=== PATIENT | male | born 1990 | race Two or more races ===

== ENCOUNTER → 2018-12-12 | Outpatient (CLI) | payer MEDICAID, SELFPAY ==
[2018-12-12 12:18] LABS: International Normalized Ratio 1.4
== END | disposition home or self-care (01) ==
LOC: LABSPEC 12:02
PROVIDERS: Referring Provider Internal Medicine; Visit Provider Internal Medicine
DX: I82.403 Acute embolism and thrombosis of unspecified deep veins of lower extremity, bilateral (principal); I26.99 Other pulmonary embolism without acute cor pulmonale
CPT/HCPCS: 85610